=== PATIENT | female | born 1970 | race Caucasian/White ===

== ENCOUNTER 2023-02-27 08:52 | Emergency (ER) | payer OTHER, SELFPAY ==
--- NOTE | ~2023-02-27 | CT_ITS ---
EXAMINATION: CT ABDOMEN AND PELVIS WITHOUT CONTRAST CLINICAL INFORMATION: Evaluate for renal stones. COMPARISON: None available. TECHNIQUE: Multidetector volumetric imaging was performed from the superior aspect of the liver through the pubic symphysis. Sagittal and coronal reformatted images were obtained on the technologist's workstation. This CT examination was performed using dose optimization techniques as appropriate, variously including the following: *Automated exposure control *Adjustment of mA and/or kV according to patient size (this includes techniques or standardized protocols for targeted exams where dose is matched to indication/reason for exam; i.e. extremities or head) *Use of iterative reconstruction technique DLP: 658 mGy-cm FINDINGS: LUNG BASES: The visualized lung bases are unremarkable. LIVER, GALLBLADDER, AND BILIARY TREE: The noncontrast liver is normal in size and contour. No suspicious hepatic lesion or biliary ductal dilatation is present. The gallbladder is unremarkable with no evidence of radiopaque gallstones, gallbladder wall thickening, or obvious pericholecystic inflammatory changes. PANCREAS: No ductal dilatation. SPLEEN: Not enlarged. ADRENAL GLANDS: No adrenal mass. KIDNEYS AND URETERS: The kidneys are symmetric in size. No renal or ureteral calculus. No hydronephrosis or perinephric stranding. BLADDER: Underdistended. No bladder calculus. GASTROINTESTINAL TRACT: Copious retained stool in the colon. No small bowel obstruction. Appendix is within normal limits. ABDOMINAL WALL: No significant hernia is appreciated. LYMPH NODES: No bulky lymphadenopathy. VASCULAR: Normal caliber abdominal aorta. PELVIC VISCERA: Unremarkable. OSSEOUS STRUCTURES: No destructive bone lesions. CT/CT abdomen pelvis wo IV con IMPRESSION: No nephrolithiasis or hydronephrosis. Constipation.
--- NOTE | ~2023-02-27 | XR_ITS ---
EXAMINATION: XR LUMBOSACRAL SPINE CLINICAL INFORMATION: Low back pain. COMPARISON: None available. TECHNIQUE: Three views of the lumbosacral spine. FINDINGS: There are 5 nonrib-bearing lumbar vertebral bodies. Normal sagittal alignment. Vertebral body heights are maintained. There is mild intervertebral disc space narrowing at L5-S1 with marginal osteophytes. Sacroiliac joints are intact. XR/XR lumbar spine 2-3V IMPRESSION: Moderate degenerative disc disease at L5-S1.
[2023-02-27 09:03] VITALS: BP 135/85; PULSE 97; RESP 20; TEMP 37.2; O2SAT 97; BMI 34.4
--- OUTSIDE RECORDS SUMMARY | 2023-02-27 10:27 | XMS_ITS | Continuity of Care Document ---
Author Name Unknown Organization [facility] Address [address] [place] [address]- Care Team Providers Care Picker / Packer Name Role Phone Charly Sandoval Primary Care Physician [phone] Encounter [facility] [place] [facility] R [id number] Date(s): 04/07/22 - 05/07/22 [facility] [address] [place] [address]- Attending Physician: Roosevelt Chawla Admitting Physician: Roosevelt Chawla Referring Physician: [id number] Allergies, Adverse Reactions, Alerts No Known Medication Allergies Substance Reaction Severity Status Other Environmental Allergy seasonal allergies Active Medications acetaminophen-oxyCODONE 325 mg-5 mg oral tablet 1, tablet, By Mouth, Every 4 hours, PRN, for severe post-operative pain, # 5 tablet, Refills 0, Tot. Refills 0, Maintenance, as needed for pain, 01/25/21 14:00:00 EST, Route to Pharmacy Electronically, [facility] #[id number] Tablet, Partial fill... Start Date: 01/25/21 Status: Ordered BuPROpion = 150 mg, By Mouth, Daily in AM, 0 Refills, Maintenance, 01/20/21 10:55:00 EDT, Partial fill upon patient request if the prescription is for a schedule II opioid drug. Start Date: 01/20/21 Status: Ordered Golytely - oral powder for reconstitution See Instructions, Drink 240mL every 15 minutes until gone, # 4,000 mL, 0 Refills, Maintenance, 04/15/22 8:57:00 EST, [facility] #[id number], Partial fill upon patient request if the prescriptionis for a schedule II opioid drug., Drink 240mL ever... Start Date: 04/15/22 Status: Ordered Ibuprofen 800 mg, By Mouth, Every 8 hours, PRN, Refills 0, Maintenance, Other, 01/20/21 10:51:00 EDT, Partialfill upon patient request if the prescription is for a schedule II opioid drug. Start Date: 01/20/21 Status: Ordered ibuprofen 800 mg oral tablet 800 mg, 1, tablet, By Mouth, Every 8 hours, # 30 tablet, Refills 0, Tot. Refills 0, Maintenance, 01/25/21 13:59:00 EST, Route to Pharmacy Electronically, [facility] #[id number], Partial fill upon patient request if the prescription is for a sched... Start Date: 01/25/21 Status: Ordered Lorazepam = 0.5 mg, By Mouth, PRN as needed for anxiety, 0 Refills, Maintenance, 01/20/21 10:53:00 EDT, Partial fill upon patient request if the prescription is for a schedule II opioid drug. Start Date: 01/20/21 Status: Ordered Omeprazole By Mouth, Daily, PRN Other, 0 Refills, Maintenance, 01/20/21 11:02:00 EDT, Partial fill upon patient request if the prescription is for a schedule II opioid drug. Start Date: 01/20/21 Status: Ordered Patient Care team information Care Team Personnel Name: Costa ZAYAS, Scarlett Napoles Position: S SN RN Member Role: Primary Care Nurse Name: Charly Sandoval Position: Reference Physician Member Role: PCP Address: Address: [address] [place] [address], [address] [place] [address]- Care Team Related Persons Name: JASPER FAROOQ Address: home [facility] [address] [place] [address] Name: JHONNY MCCORD Address: home [address] [place] [address] Name: JHONNY MCCORD Address: home [address] [place] [address]
--- OUTSIDE RECORDS SUMMARY | 2023-02-27 10:28 | XMS_ITS | Continuity of Care Document ---
Author Name Unknown Organization [facility] ter Address [address] [place] [address]- Care Team Providers Care Production Service Manager Name Role Phone Charly Sandoval Primary Care Physician [phone] Encounter [facility] [place] Date(s): 02/10/21 - 03/18/[address] [address]- Attending Physician: Henok Frazier MD Admitting Physician: Henok Frazier MD Referring Physician: Henok Frazier MD Allergies, Adverse Reactions, Alerts No Known Medication Allergies Substance Reaction Severity Status Other Environmental Allergy seasonal allergies Active Medications acetaminophen-oxyCODONE 325 mg-5 mg oral tablet 1, tablet, By Mouth, Every 4 hours, PRN, for severe post-operative pain, # 5 tablet, Refills 0, Tot. Refills 0, Maintenance, as needed for pain, 01/25/21 14:00:00 EST, Route to Pharmacy Electronically, [facility] #[id number] Tablet, Partial fill... Start Date: 01/25/21 Status: Ordered BuPROpion = 150 mg, By Mouth, Daily in AM, 0 Refills, Maintenance, 01/20/21 10:55:00 EDT, Partial fill upon patient request if the prescription is for a schedule II opioid drug. Start Date: 01/20/21 Status: Ordered Ibuprofen 800 mg, By Mouth, [...] 01/25/21 13:59:00 EST, Route to Pharmacy Electronically, [facility] #[id number], Partial fill upon patient request if the [...]
--- OUTSIDE RECORDS SUMMARY | 2023-02-27 10:28 | XMS_ITS | Continuity of Care Document ---
Author Name Unknown Organization [facility] Address [address] [place] [address]- Care Team Providers Care Manager Of Purchasing Name Role Phone Charly Sandoval Primary Care Physician Encounter [facility] [place] Date(s): 03/18/21 - 04/17/21 [facility] [address] [place] [address]- Attending Physician: Roosevelt Chawla Admitting Physician: Admtr, Ar8 Referring Physician: Admtr, Ar8 Allergies, Adverse Reactions, Alerts No Known Medication Allergies Substance Reaction Severity Status Other Environmental Allergy seasonal allergies Active Medications acetaminophen-oxyCODONE 325 mg-5 mg oral tablet 1, tablet, By Mouth, Every 4 hours, PRN, for severe post-operative pain, # 5 tablet, Refills 0, Tot. Refills 0, Maintenance, as needed for pain, 01/25/21 14:00:00 EST, [id number] Tablet, Partial fill... Start Date: 01/25/21 Status: [...] 01/25/21 13:59:00 EST, Route to Pharmacy Electronically, [facility] #[id number], Partial fill upon patient request if the [...]
--- OUTSIDE RECORDS SUMMARY | 2023-02-27 10:28 | XMS_ITS | Continuity of Care Document ---
Author Name Unknown Organization [facility] ter Address [address] [place] [address]- Care Team Providers Care Rotary Derrick Operator Name Role Phone Charly Sandoval Primary Care Physician Encounter [facility] [place] Date(s): 01/25/21 - 01/25/[address] [address]- Discharge Disposition: A-D/C Home Attending Physician: Henok Frazier MD Admitting Physician: [...] 01/25/21 14:00:00 EST, Route to Pharmacy Electronically, [facility] #[id number] Tablet, Partial fill... Start Date: 01/25/21 Status: [...] 01/25/21 13:59:00 EST, Route to Pharmacy Electronically, [facility] #[id number], Partial fill upon patient request if the [...] opioid drug. Start Date: 01/20/21 Status: Ordered Vital Signs Most recent to oldest [Reference Range]: 1 2 3 Height 154.94 cm (01/25/21 10:34 AM) 154.94 cm (01/20/21 11:20 AM) Weight 89.55 kg (01/25/21 10:34 AM) 89.55 kg (01/20/21 11:20 AM) Oxygen Saturation [94-100 %] 98 % (01/25/21 2:45 PM) 96 % (01/25/21 2:30 PM) 100 % (01/25/21 10:34 AM) Pulse Rate [55-90 bpm] 74 bpm (01/25/21 10:34 AM) Body Mass Index [18.5-24.99] 37.3 *>HHI* (01/25/21 10:34 AM) 37.3 *>HHI* (01/20/21 11:20 AM) Blood Pressure [90-138/55-84 mm Hg] 142/77mm Hg *H* (01/25/21 2:45 PM) 134/80mm Hg (01/25/21 2:30 PM) 117/78mm Hg (01/25/21 10:34 AM) Respiratory Rate [16-30 br/min] 17 br/min (01/25/21 2:45 PM) 9 br/min *L* (01/25/21 2:30 PM) 18 br/min (01/25/21 10:34 AM) Temperature [96.8-100.4 DegF] 97.8 DegF (01/25/21 2:30 PM) 99.3 DegF (01/25/21 10:34 AM) Mode of Delivery (Oxygen) Room air (01/25/21 2:45 PM) Room air (01/25/21 2:30 PM) Room air (01/25/21 10:34 AM) Blood pressure sites Arm, left (01/25/21 10:34 AM) Temperature Route Temporal (01/25/21 2:30 PM) Temporal (01/25/21 10:34 AM) Dry Weight 89.2 kg (01/25/21 10:34 AM) 89.55 kg (01/20/21 11:20 AM) Weight Obtained Via Patient/family state d (01/20/21 11:20 AM) Dry Weight Obtained Via Standing scale (01/25/21 10:34 AM) Patient/family stated (01/20/21 11:20 AM)
--- OUTSIDE RECORDS SUMMARY | 2023-02-27 10:28 | XMS_ITS | Continuity of Care Document ---
Author Name Unknown Organization [facility] Address [address] [place] [address]- Care Team Providers Care Vasc Tech Name Role Phone Charly Sandoval Primary Care Physician En[place] [facility] [place] Date(s): 08/08/19 - 09/07/19 [facility] [address] [place] [address]- [facility] Attending Physician: Roosevelt Chawla Admitting Physician: Admtr, Roosevelt Referring Physician: Admtr, Ar8 Allergies, Adverse Reactions, Alerts Substance Reaction Severity Status NKA Active Medications ibuprofen 600 mg oral tablet 1 tablet = 600 mg, By Mouth, Every 8 hours, Take with food, # 15 tablet, 0 Refills, Maintenance, 11/13/14 16:34:48, Tablet Start Date: 11/13/14 Stop Date: 11/18/14 Status: Ordered
--- OUTSIDE RECORDS SUMMARY | 2023-02-27 10:28 | XMS_ITS | Continuity of Care Document ---
Author Name Unknown Organization [facility] Address [address] [place] [address]- Care Team Providers Care Egg Gatherer Name Role Phone Charly Sandoval Primary Care Physician [phone] Encounter [facility] [place] Date(s): 08/08/19 - 08/15/19 [facility] [address] [place] [address]- [facility] Encounter Diagnosis Cough(Discharge Diagnosis) - 08/08/19 Suspected COVID-19 virus infection(Discharge Diagnosis) - 08/08/19 Attending Physician: Deonte Cueto MD Referring Physician: Charly Sandoval Allergies, Adverse Reactions, Alerts Substance Reaction Severity Status NKA Active Medications ibuprofen 600 mg oral tablet 1 tablet = 600 mg, By Mouth, Every 8 hours, Take with food, # 15 tablet, 0 Refills, Maintenance, 11/13/14 16:34:48, Tablet Start Date: 11/13/14 Stop Date: 11/18/14 Status: Ordered Problem List Diagnosis Diagnosis Type Effective Dates Health Status Cl inical Service Informant Cough Discharge Diagnosis 08/08/19 Suspected COVID-19 virus infection Discharge Diagnosis 08/08/19
--- OUTSIDE RECORDS SUMMARY | 2023-02-27 10:28 | XMS_ITS | Continuity of Care Document ---
Author Name Unknown Organization [facility] Address [address] [place] [address]- Care Team Providers Care Emergency Vehicle Driver Name Role Phone Charly Sandoval Primary Care Physician [id number] Date[facility] 01/07/22 - 05/07/22 [facility] [address] [place] [address]- Attending Physician: Benjamin Caputo MD Admitting Physician: Benjamin Caputo MD Referring Physician: Charly Sandoval Allergies, Adverse Reactions, Alerts No Known Medication Allergies Substance Reaction Severity Status Other Environmental Allergy seasonal allergies Active Medications acetaminophen-oxyCODONE 325 mg-5 mg oral tablet 1, tablet, By Mouth, Every 4 hours, PRN, for severe post-operative pain, # 5 tablet, Refills 0, Tot. Refills 0, Maintenance, as needed for pain, 01/25/21 14:00:00 EST, Route to Pharmacy Electronically, [facility] #[id number] Tablet, Partial fill... Start Date: 01/25/21 Status: [...] mL, 0 Refills, Maintenance, 04/15/22 8:57:00 EST, [facility] #[id number], Partial fill upon patient request if the [...] 01/25/21 13:59:00 EST, Route to Pharmacy Electronically, [facility] #[id number], Partial fill upon patient request if the [...] Reference Physician Member Role: PCP Address: Address: [address] [place] [address], [address] [place] [address]- Care Team Related Persons Name: JASPER FAROOQ Address: home [facility] [address] [place] [address] Name: JHONNY MCCORD Address: home [address] [place] [address] Name: JHONNY MCCORD Address: home [address] [place] [address]
--- OUTSIDE RECORDS SUMMARY | 2023-02-27 10:28 | XMS_ITS | Continuity of Care Document ---
Author Name Unknown Organization [facility] [place] Address [address] [place] [address]- Care Team Providers Care Edge Cutter Name Role Phone Charly Sandoval Primary Care Physician Encounter [facility] Date(s): 04/15/22 - 05/15/22 [facility] [place] [address] [place], [place] [address] Attending Physician: Roosevelt Chawla Admitting Physician: AdmtrRoosevelt Referring Physician: Admtr Ar8 Allergies, Adverse Reactions, Alerts No Known Medication Allergies Substance Reaction Severity Status Other Environmental Allergy seasonal allergies Active Medications acetaminophen-oxyCODONE 325 mg-5 mg oral tablet 1, tablet, By Mouth, Every 4 hours, PRN, for severe post-operative pain, # 5 tablet, Refills 0, Tot. Refills 0, Maintenance, as needed for pain, 01/25/21 14:00:00 EST, Route to Pharmacy Electronically, [facility] #[id number] Tablet, Partial fill... Start Date: 01/25/21 Status: [...] mL, 0 Refills, Maintenance, 04/15/22 8:57:00 EST, [facility] #[id number], Partial fill upon patient request if the [...] 01/25/21 13:59:00 EST, Route to Pharmacy Electronically[id number], Partial fill upon patient request if the [...] Care team information Care Team Personnel Name: Scarlett Skelton RN Position: S SN RN Member Role: Primary Care Nurse Name: Charly Sandoval Position: Reference Physician Member Role: PCP Address: Address: [address] [place] [address], [address] [place] [address]- Care Team Related Persons Name: JASPER FAROOQ Address: home [facility] [address] [place] [address] Name: JHONNY MCCORD Address: home [address] [place] [address] Name: JHONNY MCCORD Address: home [address] [place] [address]
--- OUTSIDE RECORDS SUMMARY | 2023-02-27 10:28 | XMS_ITS | Continuity of Care Document ---
Author Name Unknown Organization [facility] ter Address [address] [place] [address]- Care Team Providers Care Memorial Counselor Name Role Phone Charly Sandoval Primary Care Physician Encounter [facility] Date(s): 07/17/20 - 08/26/[address] [address]- Attending Physician: Charly Sandoval Admitting Physician: Charly Sandoval Referring Physician: Charly Sandoval Allergies, Adverse Reactions, Alerts Substance Reaction Severity Status NKA Active Medications ibuprofen 600 mg oral tablet 1 tablet = 600 mg, By Mouth, Every 8 hours, Take with food, # 15 tablet, 0 Refills, Maintenance, 11/13/14 16:34:48, Tablet Start Date: 11/13/14 Stop Date: 11/18/14 Status: Ordered
--- OUTSIDE RECORDS SUMMARY | 2023-02-27 10:28 | XMS_ITS | Continuity of Care Document ---
Author Name Unknown Organization [facility] Address [address] [place] [address]- Care Team Providers Care Hand Model Name Role Phone Charly Sandoval Primary Care Physician En[place] [facility] [place] Date(s): 12/29/21 - 01/28/22 [facility] [address] [place] [address]- [place] Allergies, Adverse Reactions, Alerts No Known Medication Allergies Substance Reaction Severity Status Other Environmental Allergy seasonal allergies Active Medications acetaminophen-oxyCODONE 325 mg-5 mg oral tablet 1, tablet, By Mouth, Every 4 hours, PRN, for severe post-operative pain, # 5 tablet, Refills 0, Tot. Refills 0, Maintenance, as needed for pain, 01/25/21 14:00:00 EST, Route to Pharmacy Electronically, [facility] #[id number] Tablet, Partial fill... Start Date: 01/25/21 Status: [...] 01/25/21 13:59:00 EST, Route to Pharmacy Electronically, [facility] #[id number], Partial fill upon patient request if the [...] Name: Costa ZAYAS, Scarlett Napoles Position: S Onco RN Member Role: Primary Care Nurse Name: Charly Sandoval Position: Reference Physician Member Role: PCP Address: Address: [address] [place] [address], [address] [place] [address]- Care Team Related Persons Name: JASPER FAROOQ Address: home [facility] [address] [place] [address] Name: JHONNY MCCORD Address: home [address] [place] [address] Name: JHONNY MCCORD Address: home [address] [place] [address]
--- OUTSIDE RECORDS SUMMARY | 2023-02-27 10:28 | XMS_ITS | Continuity of Care Document ---
Author Name Unknown Organization [facility] Address [address] [place] [address]- Care Team Providers Care Agronomy Technician Name Role Phone Charly Sandoval Primary Care Physician [id number] 12/18/20 - 04/17/21 [facility] [address] [place] [address]- Attending Physician: Troy Vale MD Admitting Physician: Troy Vale MD Referring Physician: Charly Sandoval Allergies, Adverse Reactions, Alerts No Known Medication Allergies Substance Reaction Severity Status Other Environmental Allergy seasonal allergies Active Medications acetaminophen-oxyCODONE 325 mg-5 mg oral tablet 1, tablet, By Mouth, Every 4 hours, PRN, for severe post-operative pain, # 5 tablet, Refills 0, Tot. Refills 0, Maintenance, as needed for pain, 01/25/21 14:00:00 EST, [id number]t, Partial fill... Start Date: 01/25/21 Status: [...] 01/25/21 13:59:00 EST, Route to Pharmacy Electronically, [facility] #[id number], Partial fill upon patient request if the [...]
--- NOTE | 2023-02-27 10:44 | ED.BACK ---
HPI - Back Pain/Injury General Chief Complaint: Back Pain/Injury Stated Complaint: Kidney infection Time Seen by Provider: 02/27/23 10:24 Source: patient Mode of arrival: ambulatory Limitations: no limitations History of Present Illness HPI Narrative: 52-year-old who states no past medical history presents to ED for lower back pain that is worse on movement since yesterday. Patient denies any urinary/ bowel incontinence. Patient denies any genital urinary symptoms. Patient states no trauma, nausea, or vomiting. Related Data Previous Rx's Medication Instructions Recorded naproxen 500 mg tablet 500 mg PO BID PRN pain 7 days #14 02/27/23 tabs oxycodone 5 mg capsule 5 mg PO TID PRN pain 3 days #9 caps 02/27/23 prednisone 20 mg tablet 40 mg (2 x 20 mg) PO DAILY 5 days 02/27/23 #10 tabs Allergies Allergy/AdvReac Type Severity Reaction Status Date / Time escitalopram [ESCITALOPRAM] AdvReac Mild ANXIETY Verified 02/27/23 09:06 Review of Systems Review of Systems: Low back pain Yes all other systems are reviewed and are negative [facility] Social History Social History Advance Directives: No Physical Exam Vital Signs: Vital Signs: Last Vital Signs Temp 99.0 F 02/27/23 09:03 Pulse 97 02/27/23 09:03 Resp 20 02/27/23 09:03 BP 135/85 02/27/23 09:03 Pulse Ox 97 02/27/23 09:03 O2 Del Method Room Air 02/27/23 09:03 BMI result Body Mass Index 34.4 Const: General: cooperative, healthy appearing, comfortable, no acute distress, well developed, alert, awake and Physically active Orientation/consciousness: oriented to person, oriented to place, oriented to time and patient oriented x3 HEENT: Head: Yes normal to inspection, Yes No palpable skull fracture present, Yes normocephalic and Yes atraumatic Eyes: General: appearance normal, both eyes and all related structures Neck: Neck: Yes normal visual inspection, Yes full ROM, Yes no lymphadenopathy, Yes no meningeal signs, Yes trachea midline, Yes supple, No anterior neck swelling and No tender Chest: Chest palpation & inspection: normal inspection of the chest and normal palpation of entire chest wall Resp: Effort & Inspection: normal respiratory effort and able to speak in complete sentences Auscultation: clear to auscultation bilaterally Cardio: Jugular venous distension: no JVD Heart sounds: S1 normal heart sound present and S2 normal heart sound present GI: Inspection: Yes normal to inspection Palpation (GI): Soft to palpation, not firm, nontender, no guarding and not rigid : General: No CVA tenderness and Yes no CVA tenderness Back/Spine/Pelvis: Back: no CVA tenderness, No CVA tenderness and back tenderness ( lumbar) Skin: General skin exam: no rashes or lesions noted, elasticity normal and turgor normal Neuro: General: oriented to person, oriented to place, oriented to time, patient oriented x3, gait normal, tone normal, moves all extremities, Normal light touch and pain sensation, no meningeal signs, no focal motor deficits, CN's II-XI intact bilaterally and normal sensation to monofilament Extrem: General: Yes normal to inspection and Yes full ROM Psych: Appearance: grossly normal, well kempt and not disheveled Medications Administered Discontinued Medications Generic Name Dose Route Start Last Admin Trade Name Freq PRN Reason Stop Dose Admin Ketorolac Tromethamine 30 mg 02/27/23 11:22 02/27/23 11:28 Ketorolac Tromethamine 30 Mg/Ml Vial IM 02/27/23 11:23 30 mg ONCE ONE Administration Medical Decision Making Medical Decision Making MDM Narrative: 52-year-old female healthy no past medical problems presents to ED for low back pain is worse on movement without any trauma. Patient denies any genitourinary symptoms. Patient states no abdominal pain, nausea, or vomiting. Patient states no urinary / bowel incontinence. Patient states no IV drug use. Lumbar spine x-ray and UA ordered. 12:22pm: Patient's x-ray shows lumbar radiculopathy. UA shows blood but patient not on menstruation so will do CT scan to make sure there is no kidney stone. 1:48PM: Abdominal CT scan negative for kidney stones. Patient will be discharged with narcotic, NSAID, and steroids. Presently not suspecting cauda equina or epidural abscess. patient educated on worrisome signs and informed to return to ED immediately if she has them. Patient given copy of x-ray results for follow-up with primary care. Patient informed to follow-up with mild hematuria and urine with primary care provider Differential Diagnosis Differential Diagnoses: The differential diagnosis associated with the presentation includes ( lumbar radiculopathy, sciatica, kidney stones, UTI, pyelonephritis) Lab Data MDM Lab Attestation statement: I reviewed the patient's lab results. Labs: Lab Results 02/27/23 Range/Units 11:30 Urine Color Yellow Urine Appearance Turbid Urine pH 5.5 (5.0-9.0) Ur Specific [place] >= 1.030 H (1.005-1.025) Urine Protein Trace (Neg-Trace) mg/dL Urine Glucose (UA) Negative (Negative) mg/dL Urine Ketones Trace (Negative) mg/dL Urine Blood Moderate (2+) H (Negative) Urine Nitrite Negative (Negative) Ur Leukocyte Esterase Negative (Negative) Urine RBC 11-20 H (0-2) /HPF Urine WBC 0-5 (0-5) /HPF Ur Squamous Epith Cells 11-20 (0-2) /HPF Urine Bacteria Trace (None Seen) Hyaline Casts 3-5 (0-2) /LPF Urine Test NEGATIVE (NEGATIVE) Independent Interpretation I performed an independent interpretation of an: Plain X-Ray and CT Scan Radiology Impression Discussion of test interpretation with radiology: I have reviewed the radiologist's reading. External Record Review External record reviewed: Other ( prior visit) Prescription Management I considered prescription management with: Pain Medication Discharge Plan Discharge Clinical Impression: Lumbar radiculopathy Patient Disposition: Home, Self-Care Instructions: Lumbar Radiculopathy (ED) Additional Instructions: spinal x-ray shows arthritis. CT scan came back negative for kidney stones. your urinalysis shows some blood but negative for infection. Recommend follow-up with primary care provider. Return to the ED immediately for any urinary / bowel incontinence, numbness / tingling of lower extremities, severe back pain, nausea, vomiting abdominal pain, profuse blood in the urine, fever, chills, or any other concerning symptoms. Prescriptions: New naproxen 500 mg tablet 500 mg PO BID PRN (Reason: pain) 7 Days Qty: 14 0RF oxycodone 5 mg capsule 5 mg PO TID PRN (Reason: pain) 3 Days Qty: 9 0RF Rx Instructions: Partial Fill upon patient request. prednisone 20 mg tablet 40 mg PO DAILY 5 Days Qty: 10 0RF Stand Alone Forms: Work/School Release Interventions: ED Discharge Assessment Last Done: 02/27/23 14:07 Discharge Date/Time: 02/27/23 14:07 Print Language: Algerian
[2023-02-27] MEDS: Ketorolac Tromethamine 30 MG/ML VIAL IM (11:28)
[2023-02-27 11:42] LABS: Appearance Urine Turbid; Color Urine Yellow; Glucose Urine UA Negative (Negative); Leukocyte Esterase Urine Negative (Negative); Nitrite Urine Negative (Negative); PH 5.5 (5.0-9.0); Specific Gravity - Urine >= 1.030 (1.005-1.025); UMIC TRIGGER UACC YES; Urine Blood Moderate (2+) (Negative); Urine Ketones Trace mg/dL (Negative); Urine Protein Trace mg/dL (Neg-Trace)
[2023-02-27 11:44] LABS: UPreg QC Valid YES; Urine Pregnancy NEGATIVE (NEGATIVE)
[2023-02-27 11:48] LABS: Bacteria Urine Trace (None Seen); WBC Urine 0-5 /HPF (0-5)
== END 2023-02-27 14:07 | disposition home or self-care (01) ==
PROVIDERS: Physician Assistant; Emergency Provider Emergency Medicine
DX: M54.16 Radiculopathy, lumbar region (principal); M54.50 Low back pain, unspecified
CPT/HCPCS: 72100; 74176; 81001; 81025; 96372; 99283; 99284; J1885